=== PATIENT | female | born 1985 | race African-American/Black ===

== ENCOUNTER 2023-10-16 20:20 | Emergency (ER) | payer SELFPAY ==
[~2023-10-16] VITALS: Ht 167.6 cm; Wt 110.0 kg
[2023-10-16] MEDS ORDERED: MORPHINE SULFATE 4 MG/ML CPJ (NOT FOR IM USE) IV ONE (20:45)
[2023-10-16] MEDS ORDERED: ONDANSETRON HCL 4MG/2ML INJ IV ONE (20:45)
[2023-10-16 20:53] LABS: PROTHROMBIN TIME 10.3 sec (9.6-11.0)
[2023-10-16 21:01] LABS: BASOPHILS % 0.3 % (0.0-2.0); EOSINOPHILS % 1.3 % (0.0-5.0); HEMATOCRIT. 36.5 % (36.0-48.0); HEMOGLOBIN. 12.1 g/dL (12.0-16.0); LYMPHOCYTES % 15.5 % (20.0-50.0); MEAN CORPUSCULAR HGB CONC 33.2 g/dL (31.0-37.0); MEAN CORPUSCULAR VOLUME 84.4 fL (81.0-99.0); MEAN PLATELET VOLUME 10.4 fl (7.4-10.4); MONOCYTES % 7.1 % (2.0-8.0); NEUTROPHILS % 75.8 % (40.0-76.0); PLATELET 170 x1000/uL (130-400); RED BLOOD CELL COUNT 4.32 mill/uL (4.2-5.4); RED CELL DISTRIBUTION WIDTH 12.8 % (11.6-14.6)
[2023-10-16 21:05] VITALS: O2SAT 99
[2023-10-16 21:32] LABS: B-HCG QUANTITATIVE 24950 mIU/mL (<3); CARBON DIOXIDE 21 mEq/L (21-32); CHLORIDE 106 mEq/L (98-107); CREATININE 0.4 mg/dL (0.6-1.0); GLUCOSE 83 mg/dL (70-105); POTASSIUM 3.9 mEq/L (3.5-5.1); SODIUM 136 mEq/L (136-145); UREA NITROGEN BLOOD 5 mg/dL (9-23)
[2023-10-16] MEDS ORDERED: DEXT 5%/LR + PITOCIN 20UNITS/L 1,000 ML IV SCH (23:30)
[2023-10-17] MEDS ORDERED: ACETAMINOPHEN 325MG TABLET PO ONE
[2023-10-17] MEDS ORDERED: IBUPROFEN 800MG TABLET PO ONE
[2023-10-17 00:08] VITALS: BP 130/72; PULSE 66; RESP 14; TEMP 97.8
[2023-10-17] MEDS ORDERED: IBUPROFEN 400MG TABLET PO NR (00:15)
== END 2023-10-17 00:30 | disposition short-term general hospital (02) ==
LOC: ER 20:20
DX: O62.9 Abnormality of forces of labor, unspecified (principal); Z3A.38 38 weeks gestation of pregnancy
CPT/HCPCS: 80048; 84702; 85025; 85610; 86850; 86900; 86901; 36415; 96375; 99291; 96365; J2405; J2270; J2590; Z7610